=== PATIENT | male | born 1955 | race Caucasian/White ===

== ENCOUNTER 2016-10-24 05:31 | Emergency (ER) | payer OTHER ==
--- NOTE | ~2016-10-24 | EKG ---
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 : 1955 Requested By: Guillermina Hickman Order Number: [id number] MD: Venancio Grullon Measurements Intervals [place] Rate: 67 P: -9 ME: 178 QRS: 57 QRSD: 112 T: 118 QT: 405 QTc: 428 Interpretive Statements Sinus rhythm Ventricular premature complex Anterolateral infarct, acute (LAD) No previous ECG available for comparison Electronically Signed On 10-24-2016 15:24:01 CDT by Venancio Grullon [email or web address] <ELECTRONICALLY SIGNED> By: Venancio Grullon MD, [facility] 10/24/16 1524 0533 0533 Venancio Grullon MD, [facility] /EPI
--- NOTE | ~2016-10-24 | H ---
[facility] [address] [place] [address] HISTORY AND PHYSICAL Name: ARYAN MANRIQUEZ [facility] [id number] Admission: 10/24/16 Attend Phys: Discharge: 10/24/16 Date of : 59 Report #: [id number] THIS REPORT FOR: //name// CC: ARINA physician/PCP Guillermina Hickman DATE OF SERVICE: 10/24/2016 HISTORY OF PRESENT ILLNESS: A 60-year-old male with history of stents, possibly 2001, 2003, noncompliance, has not really seen anybody. Long time smoker. Had episode of pain on night. He basically had pain on and off for 3 days, came to the emergency room last night, left AMA the first time and then around 2:30-3:00 in the morning had acute onset of chest pain, comes back to the Emergency Room now with significant ST elevation, in the anterior leads, 10/10 discomfort. So far hemodynamically stable. He takes no medications. He has a history of hypertension, hypercholesterolemia, long time tobacco use. He denies any surgeries. History of hypertension, hypercholesterolemia, does not take medications. PAST MEDICAL HISTORY: Positive for tobacco, coronary artery disease with prior stents, believes he may have had some limited infarcts, not very clear on this. He comes back now crushing substernal chest pain as I stated. LABORATORY DATA: Potassium 3.8, creatinine 1.2. Troponin less than 0.04. H and H are 14 and 41. This may have been the lab from 2:30 this morning. FAMILY HISTORY: Negative for premature coronary artery disease except for him. ALLERGIES: No known drug allergies. SOCIAL HISTORY: He is not , no children. 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 Moderately heavy alcohol and tobacco on a daily basis. REVIEW OF SYSTEMS: Negative except for some occasional nocturia and frequency. PHYSICAL EXAMINATION: GENERAL: Has significant amount of discomfort. VITAL SIGNS: Pulse is the 50s, blood pressure 150/96. HEENT: Eyes reveal xanthelasmas. Pharynx is clear. NECK: Shows preserved upstrokes without JVD or bruits. LUNGS: Clear. CARDIOVASCULAR: Regular rate and rhythm, S1, S2. ABDOMEN: Soft. No HSM or abdominal bruit. EXTREMITIES: Reveal no edema. Pulses intact. NEUROLOGIC: Nonfocal. SKIN: Warm and dry without xanthoma or ulcer. [facility] [address] [place] [address] HISTORY AND PHYSICAL Name: ARYAN MANRIQUEZ Room #: DEP [facility]#: [id number] Admission: 10/24/16 Attend Phys: Discharge: 10/24/16 Date of : 59 Report #: [id number] MUSCULOSKELETAL: No gross joint deformity. ASSESSMENT: 1. Acute anterior wall myocardial infarction. 2. Continued tobacco use. 3. Noncompliance. 4. Hypertension. 5. Hypercholesterolemia, untreated. RECOMMENDATIONS AND PLAN: We will proceed emergently to the catheterization lab. Aspirin, Lipitor, heparin, intervention as indicated. Further review of these records shows that possibly 2 stents in [place] in 2000, another one in [address] Bess here at [facility] may have angioplastied the right coronary artery in 2008. I do not have confirmation of this. In any event, risks, benefits, alternatives were discussed. We are proceeding on emergently. <ELECTRONICALLY SIGNED> By: Mike Anne MD, FACC 10/25/16 0904 0626 0725 Mike Anne MD, FACC /nt
--- NOTE | ~2016-10-24 | CATHLAB ---
[facility] [address] [place] [address] INVASIVE PROCEDURE REPORT Name: ARYAN MANRIQUEZ Room #: DEP [facility]#: [id number] Admission: 10/24/16 Attend Phys: Discharge: 10/24/16 Date of : 59 Date of Service: 10/24/16 0719 Report #: [id number] THIS REPORT FOR: //name// CC: ARINA physician/PCP Guillermina Hickamn PROCEDURES PERFORMED: Emergent percutaneous transluminal coronary angioplasty stent of mid LAD, left ventriculography, coronary angiography, abdominal aortography. DESCRIPTION OF PROCEDURE: The patient brought to the catheterization lab, has an acute anterior wall myocardial infarction, waxing and waning of ST segment. Initially in the anterior leads, heparin was given and Lipitor 80 and aspirin. The EKGs transiently had improved with the chest pain. Right groin prepped and draped in sterile manner. 1% Xylocaine was used for local anesthesia. Versed was given for conscious sedation, a 6-Malay sheath, right femoral artery over the wire. Initially straight pigtail catheter performed a single TIAN arteriogram, there was an extensive anterior apical severely hypokinetic to akinetic segment. EF 20-25%. FL4 for left coronary system, FR4 for the right coronary system, multiple views and obliques were taken. The mid LAD is totally occluded. Previously placed stents were moderately restenosed, this is occluded just distal to the last stent in the mid vessel. Left main, mild disease. The circumflex 60, 40-50% proximal and 60% OM lesions, small nondominant, large dominant right with previously placed stents is mild, in-stent restenosis proximally and distally, 40% in-stent restenosis with a relatively small PDA and ALEX dominant vessel. I utilized a 3.5 EBU guide, heparin, Integrilin boluses, Integrilin drip and p.o. Effient load. the mid vessel LAD was dilated with a 2.5 x 12 balloon, was able to restore some flow overlapping for the distal to the distal third has a long area of high-grade disease. I then exchanged over the wired magnet for a 2.75 x 22 Resolute drug-eluting stent. This side we telescoped into the more distal stent with the most distal, mid old prior mid vessel stent and postdilated this initially 10 atmospheres and up to 20 atmospheres within the stent and I also dilated up proximal previously placed stent in sequence. Final result was excellent for BREANNA grade 3 flow and marked improvement in the luminal diameter of this LAD extends around the apex, hoping for some improvement in the LV function. He is hemodynamically stable. ST segments have markedly improved. His pain is down to 1/10. Some vascular sheath secured with ACT of 219, will transfer to CCU improved, but still guarded condition. HEMODYNAMICS: Aortic 158/90, LV 150/18. IMPRESSION: 1. Successful percutaneous transluminal coronary angioplasty stent of mid LAD to acute infarct vessel with dilatation same with a 2.75 x 22 Resolute dilated 3.0 mm in size, yielding brisk flow throughout this entire LAD system, redilatation [facility] [address] [place] [address] INVASIVE PROCEDURE REPORT Name: ARYAN MANRIQUEZ Kris Room #: [facility] Bashir#: [id number] Admission: 10/24/16 Attend Phys: Discharge: 10/24/16 Date of : 59 Date of Service: 10/24/16 0719 Report #: [id number] of the more proximal stents. 2. Left main with mild disease. 3. Circ OM, 40% circumflex, 60% of first OM small, treat medically. 4. Large dominant right with 30% proximal in-stent restenosis and 40% in-stent restenosis and the distal stent with diffuse disease in the PDA. 5. Normal left ventricular size with an extensive area of anterior apical infarct, EF 40% or 20-25%. 6. Abdominal aorta intact with mild irregularities, mild aortic ectasia. RECOMMENDATIONS: Continue aggressive risk factor modification, dual antiplatelet therapy indefinitely to CCU in improving guarded condition. <ELECTRONICALLY SIGNED> By: Mike Anne MD, FACC 10/25/16 0903 0719 1039 Mike Anne MD, FACC /nt
[~2016-10-24 05:31] MED LIST: NITROGLYCERIN0.4 MG SUBLING
[2016-10-24 05:50] VITALS: BP 187/126
[2016-10-24 05:55] LABS: EOSINOPHILS 2.1 % (0.0-3.0); HEMOGLOBIN 14.4 gm/dL (14.0-18.0); LYMPHOCYTES 39.4 % (24.0-44.0); MCH 30.2 pg (26.0-34.0); MCHC 34.2 g/dL (28.0-37.0); MCV 88.3 fL (80.0-100.0); MONOCYTES 9.4 % (1.0-8.0); PLATELET COUNT 199 thou/uL (150-400); POLYS 48.1 % (36.0-66.0); RBC 4.76 mil/uL (4.50-6.00); RDW 12.8 % (10.5-14.5); WBC 8.2 thou/uL (4.0-11.0)
[2016-10-24 06:07] LABS: APTT 27.1 Seconds (24.5-32.8); PROTIME 10.6 Seconds (9.3-11.4)
[2016-10-24 06:09] LABS: MANUAL DIFF NO
[2016-10-24 06:11] LABS: ANION GAP 8 mmol/L (7-16); BUN 14 mg/dL (7-18); CALCIUM 9.1 mg/dL (8.5-10.1); CHLORIDE 95 mmol/L (98-107); CO2 26 mmol/L (21-32); CREATININE 1.3 mg/dL (0.6-1.3); GLUCOSE 235 mg/dL (70-99); POTASSIUM 3.8 mmol/L (3.5-5.1); SODIUM 129 mmol/L (136-145)
[2016-10-24 06:15] LABS: ALBUMIN 3.7 g/dL (3.4-5.0); ALKALINE PHOSPHATASE 112 U/L (46-116); NT-PRO BRAIN NAT PEPTIDE 269 pg/mL (<300); SGPT 44 U/L (30-65); TOTAL BILIRUBIN 0.3 mg/dL (<0.1-1.0); TOTAL PROTEIN 7.5 g/dL (6.4-8.2); TROPONIN-I < 0.04 ng/mL (<0.04-0.07)
[2016-10-24 06:49] LABS: SGOT 27 U/L (15-37)
== END 2016-10-24 07:26 | disposition home or self-care (01) ==
LOC: ER 05:31
PROVIDERS: Emergency Medicine
DX: I21.3 ST elevation (STEMI) myocardial infarction of unspecified site (principal); I10 Essential (primary) hypertension; E78.5 Hyperlipidemia, unspecified

== ENCOUNTER 2016-10-24 08:03 | Inpatient (IN) | payer OTHER ==
[~2016-10-24] VITALS: Ht 185.4 cm; Wt 98.6 kg
[2016-10-24] VITALS (12 sets, daily range): BP systolic 101–136; BP diastolic 67–88
--- NOTE | ~2016-10-24 | EKG ---
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 : 1955 Requested By: Mike Anne Order Number: [id number] MD: Venancio Grullon Measurements Intervals [place] Rate: 59 P: 34 IA: 196 QRS: 26 QRSD: 118 T: 218 QT: 473 QTc: 469 Interpretive Statements Sinus rhythm Nonspecific intraventricular conduction delay Inferior infarct, age indeterminate Abnrm T, probable ischemia, anterolateral lds no previous ECGs available for comparison Electronically Signed On 10-25-2016 9:20:36 CDT by Venancio Grullon [email or web address] <ELECTRONICALLY SIGNED> By: Venancio Grullon MD, [facility] 10/25/16 09 0708 0708 Venancio Grullon MD, [facility] /EPI
--- NOTE | ~2016-10-24 | EKG ---
[address] [place] [address] ELECTROCARDIOGRAM REPORT Name: ARYAN MANRIQUEZ Room #: 218-P ADM IN M.R.#: [id number] Admission: 10/24/16 Attend Phys: Mike Anne MD, Discharge: Date of : 59 Report #: [id number] THIS REPORT FOR: //name// 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 : 1955 Requested By: Mike Anne Order Number: [id number] MD: Venancio Grullon Measurements Intervals [place] Rate: 53 P: 42 IL: 205 QRS: 29 QRSD: 106 T: 221 QT: 478 QTc: 449 Interpretive Statements Sinus rhythm Borderline prolonged IL interval Inferior infarct, old Abnrm T, consider ischemia, anterolateral lds No previous ECG available for comparison Electronically Signed On 10-25-2016 9:07:05 CDT by Venancio Grullon [email or web address] <ELECTRONICALLY SIGNED> By: Venancio Grullon MD, [facility] 10/25/16906 00 100 Venancio Grullon MD, [facility] /EPI
[2016-10-25 04:00] VITALS: BP 105/72
[2016-10-25 04:16] LABS: HEMATOCRIT 40.4 % (42.0-52.0); HEMOGLOBIN 13.8 gm/dL (14.0-18.0); MCH 30.2 pg (26.0-34.0); MCHC 34.2 g/dL (28.0-37.0); MCV 88.5 fL (80.0-100.0); RBC 4.57 mil/uL (4.50-6.00); RDW 12.7 % (10.5-14.5); WBC 7.8 thou/uL (4.0-11.0)
[2016-10-25 04:35] LABS: ANION GAP 7 mmol/L (7-16); BUN 10 mg/dL (7-18); CALCIUM 8.8 mg/dL (8.5-10.1); CHLORIDE 100 mmol/L (98-107); CHOLESTEROL 200 mg/dL (<200); CO2 27 mmol/L (21-32); CREATININE 1.1 mg/dL (0.6-1.3); GLUCOSE 213 mg/dL (70-99); HDL CHOLESTEROL 29 mg/dL (>40); POTASSIUM 4.1 mmol/L (3.5-5.1); SODIUM 134 mmol/L (136-145); TC:HDL 6.9 Ratio (Not establshd); TRIGLYCERIDE 699 mg/dL (<150); VLDL 140 mg/dL (<40)
[2016-10-25 04:38] LABS: SERUM ASSESSMENT Clear
[2016-10-25 04:39] LABS: TROPONIN-I 0.67 ng/mL (<0.04-0.07)
[2016-10-25 07:55] VITALS: BP 114/73
[2016-10-25 11:20] VITALS: BP 133/72
[2016-10-25 15:15] VITALS: BP 108/73
[2016-10-25 21:05] VITALS: BP 116/74
[2016-10-26 04:52] VITALS: BP 107/65
[2016-10-26 07:31] VITALS: BP 109/66
[2016-10-26] MEDS ORDERED: NICOTINE TRANSD21 M1 TRANSDERM (08:20)
[2016-10-26] MEDS ORDERED: METOPROLOL SUCC25 M1 PO (08:20)
[2016-10-26] MEDS ORDERED: ASPIRIN325 PO (08:20)
[2016-10-26] MEDS ORDERED: PANTOPRAZOLE SO40 M1 PO (08:20)
[2016-10-26] MEDS ORDERED: ATORVASTATIN CA40 MG PO (08:20)
[2016-10-26] MEDS ORDERED: EFFIENT10 MG PO (08:20)
[2016-10-26] MEDS ORDERED: ALTACE10 MG PO (08:20)
[2016-10-26] MEDS ORDERED: CHANTIX1 EACH PO (09:12)
[2016-10-26 11:10] VITALS: BP 107/70
[2016-10-26 11:15] VITALS: BP 109/66
[2016-10-26 12:27] VITALS: BP 109/66
== END 2016-10-26 12:00 | disposition home or self-care (01) | DRG 247 ==
LOC: 2N 08:03
PROVIDERS: Internal Medicine Cardiovascular Disease
PROC: B4101ZZ Fluoroscopy of Abdominal Aorta using Low Osmolar Contrast (ICD-10-PCS; principal; 2016-10-24)
PROC: B2151ZZ Fluoroscopy of Left Heart using Low Osmolar Contrast (ICD-10-PCS; principal; 2016-10-24)
PROC: B2111ZZ Fluoroscopy of Multiple Coronary Arteries using Low Osmolar Contrast (ICD-10-PCS; principal; 2016-10-24)
PROC: 4A023N7 Measurement of Cardiac Sampling and Pressure, Left Heart, Percutaneous Approach (ICD-10-PCS; principal; 2016-10-24)
PROC: 027034Z Dilation of Coronary Artery, One Artery with Drug-eluting Intraluminal Device, Percutaneous Approach (ICD-10-PCS; principal; 2016-10-24)
DX: I21.3 ST elevation (STEMI) myocardial infarction of unspecified site (principal); I25.10 Atherosclerotic heart disease of native coronary artery without angina pectoris; I10 Essential (primary) hypertension; E78.00 Pure hypercholesterolemia, unspecified; E78.1 Pure hyperglyceridemia; F17.210 Nicotine dependence, cigarettes, uncomplicated; I25.5 Ischemic cardiomyopathy; Z71.6 Tobacco abuse counseling; Z79.899 Other long term (current) drug therapy; Z79.82 Long term (current) use of aspirin
CPT/HCPCS: 10081

== ENCOUNTER 2019-08-14 04:27 | Emergency (ER) | payer OTHER ==
[~2019-08-14] VITALS: Ht 188 cm; Wt 90.7 kg
[~2019-08-14 04:27] MED LIST changes: +ALTACE10 MG PO; +ASPIRIN325 PO; +ATORVASTATIN CA40 MG PO; +CHANTIX1 EACH PO; +EFFIENT10 MG PO; +METOPROLOL SUCC25 M1 PO; +NICOTINE TRANSD21 M1 TRANSDERM; +PANTOPRAZOLE SO40 M1 PO
[2019-08-14] MEDS ORDERED: GEMFIBROZIL 60600 MG PO (04:35)
[2019-08-14 05:14] LABS: ANION GAP 8 mmol/L (7-16); BUN 14 mg/dL (7-18); CALCIUM 9.7 mg/dL (8.5-10.1); CHLORIDE 95 mmol/L (98-107); CO2 27 mmol/L (21-32); CREATININE 0.9 mg/dL (0.7-1.3); GLUCOSE 416 mg/dL (74-106); POTASSIUM 3.8 mmol/L (3.5-5.1); SODIUM 130 mmol/L (136-145)
[2019-08-14 05:22] LABS: ABSOLUTE NEUTROPHILS 2.6 thou/uL (1.4-8.2); BASOPHILS 0.9 % (0.0-2.0); EOSINOPHILS 2.4 % (0.0-3.0); HEMATOCRIT 42.9 % (42.0-52.0); HEMOGLOBIN 14.3 gm/dL (14.0-18.0); LYMPHOCYTES 38.5 % (24.0-44.0); MCH 29.9 pg (26.0-34.0); MCHC 33.2 g/dL (28.0-37.0); MCV 89.9 fL (80.0-100.0); MONOCYTES 9.9 % (1.0-8.0); PLATELET COUNT 164 thou/uL (150-400); POLYS 48.3 % (36.0-66.0); RBC 4.78 mil/uL (4.50-6.00); RDW 12.5 % (10.5-14.5); WBC 5.4 thou/uL (4.0-11.0)
[2019-08-14 05:23] LABS: TROPONIN-I <0.06 ng/mL (<0.06)
--- NOTE | 2019-08-14 07:58 | EKG ---
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: : 1955 Requested By: Tom Rascon Order Number: [id number] MD: Blue Velasco Measurements Intervals [place] Rate: 66 P: 38 NE: 188 QRS: 24 QRSD: 88 T: 45 QT: 443 QTc: 465 Interpretive Statements Sinus rhythm Inferior infarct, old Compared to ECG 10/25/2016 07:08:05 Intraventricular conduction delay no longer present Possible ischemia no longer present Myocardial infarct finding still present Electronically Signed On 08-14-2019 7:57:36 NITRATING ACID MIXER by Blue Velasco [email or web address] <ELECTRONICALLY SIGNED> By: Blue Velasco MD 08/14/19 0757 0433 0433 Blue Velasco MD /ANAM
[2019-08-14] MEDS ORDERED: ZOFRAN ODT4 MG PO (08:02)
[2019-08-14] MEDS ORDERED: MECLIZINE HCL25 MG PO (08:06)
[2019-08-14 08:11] VITALS: BP 148/91
== END 2019-08-14 08:18 | disposition home or self-care (01) ==
LOC: ER 04:27
PROVIDERS: Emergency Medicine
DX: R42 Dizziness and giddiness (principal); I10 Essential (primary) hypertension; E78.5 Hyperlipidemia, unspecified; I25.2 Old myocardial infarction; F17.210 Nicotine dependence, cigarettes, uncomplicated; Z95.2 Presence of prosthetic heart valve